=== PATIENT | female | born 1970 | race Caucasian/White ===

== ENCOUNTER 2018-05-03 11:25 | Inpatient (IN) | payer OTHER ==
[~2018-05-03] VITALS: Ht 170.2 cm; Wt 112.4 kg
[~2018-05-03 11:25] MED LIST: ACTOS30 MG PO; FLEXERIL10 MG PO; GABAPENTIN300 MG PO; HUMALOG MI100 UNIT/6 SC; KEFLEX500 MG PO; LEVEMIR100 UNIT/2 SC; METFORMIN HCL1000 MG PO; METFORMIN HCL500 MG PO; PERCOCET 5/31 TABLET PO; ZESTRIL2.5 MG PO
[2018-05-03 11:50] LABS: BASOPHIL (%) 0.7 % (0-1); BASOPHIL COUNT 0.1 K/uL (0-0.1); EOSINOPHIL COUNT 0.4 K/uL (0-0.3); HEMATOCRIT 42.3 % (36.0-46.0); HEMOGLOBIN 14.3 G/DL (11.9-15.5); IMMATURE GRANULOCYTE (%) 0.3 % (0.0-0.7); LYMPHOCYTE (%) 16.7 % (15-42); LYMPHOCYTE COUNT 1.7 K/uL (1.0-2.8); MCH 31.3 PG (29.0-34.0); MCHC 33.8 G/DL (30.0-36.0); MCV 92.6 FL (83-99); MONOCYTE (%) 4.8 % (3-12); MONOCYTE COUNT 0.5 K/uL (0-0.8); NEUTROPHIL (%) 73.5 % (45-76); NEUTROPHIL COUNT 7.6 K/uL (1.8-6.4); PLATELET COUNT 309 K/uL (156-360); RED BLOOD COUNT 4.57 M/uL (3.80-5.20); WHITE BLOOD COUNT 10.4 K/uL (4.1-10.2)
[2018-05-03 12:04] LABS: CHLORIDE 105 mEq/L (99-109); POTASSIUM 5.2 mEq/L (3.7-5.4); SODIUM 140 mEq/L (136-147)
[2018-05-03 12:05] LABS: GLUCOSE 326 mg/dL (70-99)
[2018-05-03 12:09] LABS: CREATININE 1.2 mg/dL (0.6-1.3); GFR ESTIMATE (CALCULATED) 51 mL/min/
[2018-05-03 12:10] LABS: UREA NITROGEN (BUN) 27 mg/dL (9-23)
[2018-05-03 16:37] VITALS: BP 118/73
[2018-05-03 18:53] VITALS: BP 120/65
[2018-05-03 22:09] LABS: DEVICE NC; O2 FLOW 3 L/MIN; SITE LR; TOTAL RESP RATE 35 resp/min; pH 7.41 (7.35-7.45)
[2018-05-03 22:10] LABS: BASE EXCESS -1.9 mEq/L (-3 to +3); BICARBONATE 22.2 mEq/L (22-26); CARBOXY HGB 1.9 % (0-5); METHEMOGLOBIN 1.3 % (0-1.5); O2 SATURATION (CALCULATED) 91.7 % (95-99); PCO2 35 mm Hg (35-45); PO2 59 mm Hg (80-100)
[2018-05-04] VITALS (7 sets, daily range): BP systolic 106–125; BP diastolic 65–74
[2018-05-04 08:12] LABS: COMMENTS - BLOOD GASES A+C+; DEVICE HHFNC; FI02 50 %; O2 FLOW 50 L/MIN; PCO2 37 mm Hg (35-45); PO2 102 mm Hg (80-100); SITE LR; TOTAL RESP RATE 20 resp/min; pH 7.37 (7.35-7.45)
[2018-05-04 08:13] LABS: BASE EXCESS -3.4 mEq/L (-3 to +3); BICARBONATE 21.4 mEq/L (22-26); CARBOXY HGB 1.1 % (0-5); METHEMOGLOBIN 1.3 % (0-1.5)
[2018-05-04 08:54] LABS: HEMATOCRIT 39.4 % (36.0-46.0); HEMOGLOBIN 13.5 G/DL (11.9-15.5); MCH 31.5 PG (29.0-34.0); MCHC 34.3 G/DL (30.0-36.0); MCV 92.1 FL (83-99); RBC DIS.WIDTH-CV 13.2 % (11.8-14.6); RBC DIS.WIDTH-SD 44.6 % (39-53); RED BLOOD COUNT 4.28 M/uL (3.80-5.20); WHITE BLOOD COUNT 14.8 K/uL (4.1-10.2)
[2018-05-04 09:00] LABS: CHLORIDE 100 MEQ/L (99-109); CREATININE 0.9 MG/DL (0.6-1.3); GFR ESTIMATE (CALCULATED) > 59 mL/min/; GLUCOSE 345 mg/dL (70-99); POTASSIUM 5.1 MEQ/L (3.7-5.4); SODIUM 133 MEQ/L (136-147); UREA NITROGEN (BUN) 25 mg/dL (9-23)
[2018-05-04 09:37] LABS: PLAT.SUFFICIENCY ADEQUATE; PLATELET COUNT 281 K/uL (156-360)
[2018-05-04 22:41] LABS: GLUCOSE 736 mg/dL (70-99)
[2018-05-05 03:35] VITALS: BP 99/57
[2018-05-05 07:28] VITALS: BP 114/68
[2018-05-05 12:23] VITALS: BP 142/79
[2018-05-05 15:58] VITALS: BP 136/72
[2018-05-05 18:00] VITALS: BP 98/53
[2018-05-05 19:57] VITALS: BP 121/58
[2018-05-06 01:13] VITALS: BP 121/58
[2018-05-06 04:25] VITALS: BP 145/73
[2018-05-06 08:00] VITALS: BP 129/84
[2018-05-06] MEDS ORDERED: AZITHROMYCIN250 MG PO (08:59)
[2018-05-06] MEDS ORDERED: LEVEMIR100 UNIT/2 SC (08:59)
[2018-05-06] MEDS ORDERED: PREDNISONE20 MG PO (09:00)
[2018-05-06] MEDS ORDERED: SPIRIVA18 MCG IH (09:01)
[2018-05-06] MEDS ORDERED: PROAIR HFA8.5 GM IH (09:02)
[2018-05-06] MEDS ORDERED: INSULIN SYRING1 EA53 MC (09:07)
[2018-05-06] MEDS ORDERED: TEST STRIPS MC (09:08)
[2018-05-06] MEDS ORDERED: [UNRECOGNIZED DRUG - SUPPLY] MC (09:08)
[2018-05-06] MEDS ORDERED: NICOTINE PATCH1 EAC1 TD (09:10)
== END 2018-05-06 11:28 | disposition home or self-care (01) | DRG 190 ==
LOC: EME 11:25 → EDOF 14:56 → ENRESERV 15:04 → 4SOUTH 16:17 → 4EAST 05-04 07:37 → 4SOUTH 05-04 07:37 → 2EAST 05-04 07:37 → 4SOUTH 05-04 07:38 → ENRESERV 05-04 07:42 → 4EAST 05-04 11:54 → ENRESERV 05-05 16:39 → 2EAST 05-05 17:54
PROVIDERS: Emergency Medicine; Internal Medicine; Student in an Organized Health Care Education/Training Program
DX: J44.1 Chronic obstructive pulmonary disease with (acute) exacerbation (principal); J20.9 Acute bronchitis, unspecified; J44.0 Chronic obstructive pulmonary disease with (acute) lower respiratory infection; J96.01 Acute respiratory failure with hypoxia; T59.4X1A Toxic effect of chlorine gas, accidental (unintentional), initial encounter; Y92.031 Bathroom in apartment as the place of occurrence of the external cause; R00.0 Tachycardia, unspecified; E11.65 Type 2 diabetes mellitus with hyperglycemia; T38.0X5A Adverse effect of glucocorticoids and synthetic analogues, initial encounter; I10 Essential (primary) hypertension; F17.200 Nicotine dependence, unspecified, uncomplicated; Z71.6 Tobacco abuse counseling; Z79.4 Long term (current) use of insulin; Z85.43 Personal history of malignant neoplasm of ovary; Z90.710 Acquired absence of both cervix and uterus
CPT/HCPCS: 36600; 71045; 71275; 80048; 82948; 84999; 85025; 85027; 85379; 94640; 94760; 94799; 99281; 99285; G0378; J0456; J0696; J1644; J1815; J2920; J2930; J7512